=== PATIENT | female | born 1985 | race Caucasian/White ===

== ENCOUNTER 2020-03-21 00:23 | Inpatient (IN) | payer BC ==
[~2020-03-21] VITALS: Ht 165.1 cm; Wt 78.2 kg
[2020-03-21] MEDS ORDERED: UNABLE MC (00:52)
[2020-03-21 01:01] LABS: BASO % 0 % (0-3); EOS % 0 % (0-3); HEMATOCRIT 39.8 % (36.0-47.0); HEMOGLOBIN 12.9 g/dL (12.0-15.5); LYMPH # 1.3 x10^3/uL (1.0-4.8); LYMPH % 13 % (24-48); MEAN CORPUSCULAR HEMOGLOBIN 26 pg (25-35); MEAN CORPUSCULAR HGB CONC 32 g/dL (31-37); MEAN CORPUSCULAR VOLUME 79 fL (79-100); MONO # 0.6 x10^3/uL (0.0-1.1); MONO % 6 % (0-9); NEUT # 8.1 x10^3/uL (1.8-7.7); NEUT % 81 % (31-73); PLATELET COUNT 328 x10^3/uL (140-400); RED BLOOD COUNT 5.02 x10^6/uL (3.50-5.40); RED CELL DISTRIBUTION WIDTH 17.7 % (11.5-14.5)
[2020-03-21 01:15] LABS: GFR 63.5; POTASSIUM 3.9 mmol/L (3.5-5.1)
[2020-03-21 01:29] LABS: ALBUMIN 3.8 g/dL (3.4-5.0); ALBUMIN/GLOBULIN RATIO 0.9 (1.0-1.7); TOTAL BILIRUBIN 0.4 mg/dL (0.2-1.0); TOTAL PROTEIN 8.2 g/dL (6.4-8.2)
[2020-03-21] MEDS ORDERED: IV NORMAL SALINE 1000ML BAG 1,000 ML IV ONE (01:30)
[2020-03-21] MEDS ORDERED: ONDANSETRON PF 4 MG/2 ML VIAL. IVP ONE ×2 (01:30→02:30)
[2020-03-21 01:58] LABS: BILIRUBIN,URINE NEGATIVE (NEG); CLARITY,URINE CLEAR; COLOR,URINE YELLOW; NITRITE,URINE NEGATIVE (NEG); PH,URINE 6.5 (<5.0-8.0); PROTEIN,URINE NEGATIVE (NEG-TRACE)
[2020-03-21 02:01] LABS: BACTERIA,URINE MANY /HPF (0-FEW); RBC,URINE OCC /HPF (0-2); SQUAMOUS EPITHELIAL CELL,UR MOD /LPF
[2020-03-21] MEDS ORDERED: DICYCLOMINE 20 MG/2 ML VIAL. IM ONE (02:30)
[2020-03-21] MEDS ORDERED: MORPHINE SULFATE 4 MG/ML VIAL. IV ONE (02:30)
[2020-03-21] MEDS ORDERED: HYDROmorphone 2 MG/ML VIAL IM ONE (02:45)
[2020-03-21] MEDS ORDERED: HYDROmorphone 2 MG/ML VIAL IV ONE (03:00)
[2020-03-21] MEDS ORDERED: CONTRAST GIVEN. MC PRN (03:15)
--- NOTE | 2020-03-21 03:26 | PHYS DOC ---
Past Medical History Past Medical History: Hypothyroid, Other Additional Past Medical Histor: OCD,VIT B DEFFIC. Past Surgical History: Other Additional Past Surgical Histo: GASTRIC SLEEVE,TUBAL LIGATION,C SECT X 5 Smoking Status: Never Smoker Alcohol Use: None General Adult EDM: Chief Complaint: ABDOMINAL PAIN HPI: HPI: Patient is a 34 year old female who presents to the ED with a chief complaint of abdominal pain. Patient states that she has had the pain on and off all day today. Patient states that she had episodes of vomiting also today. Patient has been states that he has had diarrhea all day. Patient states that the barbiturate yesterday and thinks that she may have had something that caused this. Patient denies . Patient did say that she has a history of gastric bypass surgery and has a gastric pouch currently. Review of Systems: Review of Systems: Constitutional: Denies fever or chills. [] Eyes: Denies change in visual acuity. [] HENT: Denies nasal congestion or sore throat. [] Respiratory: Denies cough or shortness of breath. [] Cardiovascular: Denies chest pain or edema. [] GI: Patient complains of abdominal pain, nausea and vomiting [] : Denies dysuria. [] Neurologic: Denies headache, focal weakness or sensory changes. [] Heart Score: Risk Factors: Risk Factors: DM, Current or recent (<one month) smoker, HTN, HLP, family history of CAD, obesity. Risk Scores: Score 0 - 3: 2.5% MACE over next 6 weeks - Discharge Home Score 4 - 6: 20.3% MACE over next 6 weeks - Admit for Clinical Observation Score 7 - 10: 72.7% MACE over next 6 weeks - Early Invasive Strategies Current Medications: Current Medications Medications (Trade) Dose Ordered Sig/Kleber Start Time Stop Time Status Last Admin Dose Admin Dicyclomine HCl (Bentyl) 20 mg 1X ONCE 03/21/20 02:30 03/21/20 02:31 DC 03/21/20 02:21 20 MG Hydromorphone HCl (Dilaudid) 1 mg 1X ONCE 03/21/20 03:00 03/21/20 03:01 DC Info (CONTRAST GIVEN -- Rx MONITORING) 1 each PRN DAILY PRN 03/21/20 03:15 03/23/20 03:14 Iohexol (Omnipaque 300 Mg/ml) 75 ml 1X ONCE 03/21/20 03:30 03/21/20 03:31 03/21/20 03:11 75 ML Morphine Sulfate (Morphine Sulfate) 4 mg 1X ONCE 03/21/20 02:30 03/21/20 02:31 DC Ondansetron HCl (Zofran) 4 mg 1X ONCE 03/21/20 02:30 03/21/20 02:31 DC 03/21/20 02:37 4 MG Sodium Chloride 1,000 ml @ 1,000 mls/hr 1X ONCE 03/21/20 01:30 03/21/20 02:29 DC 03/21/20 01:10 1,000 MLS/HR Allergies: Allergies: Allergies Coded Allergies Type Severity Reaction Last Updated Verified Penicillins Allergy Intermediate HIVES 03/21/20 Yes morphine Allergy Intermediate hives 03/21/20 Yes Physical Exam: PE: Constitutional: Well developed, well nourished, no acute distress, non-toxic appearance. [] HENT: Normocephalic, atraumatic Eyes: EOMI Neck: Normal range of motion, Supple Cardiovascular:Heart rate regular rhythm Lungs & Thorax: Bilateral breath sounds clear to auscultation [] Abdomen: Diffuse abdominal tenderness. No focal abdominal tenderness Extremities: No tenderness, ROM intact Neurologic: Alert and oriented X 3 Current Patient Data: Labs: Laboratory Tests Test 03/21/20 00:48 03/21/20 01:30 03/21/20 01:54 White Blood Count 10.0 x10^3/uL (4.0-11.0) Red Blood Count 5.02 x10^6/uL (3.50-5.40) Hemoglobin 12.9 g/dL (12.0-15.5) Hematocrit 39.8 % (36.0-47.0) Mean Corpuscular Volume 79 fL (79-100) Mean Corpuscular Hemoglobin 26 pg (25-35) Mean Corpuscular Hemoglobin Concent 32 g/dL (31-37) Red Cell Distribution Width 17.7 % (11.5-14.5) H Platelet Count 328 x10^3/uL (140-400) Neutrophils (%) (Auto) 81 % (31-73) H Lymphocytes (%) (Auto) 13 % (24-48) L Monocytes (%) (Auto) 6 % (0-9) Eosinophils (%) (Auto) 0 % (0-3) Basophils (%) (Auto) 0 % (0-3) Neutrophils # (Auto) 8.1 x10^3/uL (1.8-7.7) H Lymphocytes # (Auto) 1.3 x10^3/uL (1.0-4.8) Monocytes # (Auto) 0.6 x10^3/uL (0.0-1.1) Eosinophils # (Auto) 0.0 x10^3/uL (0.0-0.7) Basophils # (Auto) 0.0 x10^3/uL (0.0-0.2) Sodium Level 140 mmol/L (136-145) Potassium Level 3.9 mmol/L (3.5-5.1) Chloride Level 103 mmol/L (98-107) Carbon Dioxide Level 26 mmol/L (21-32) Anion Gap 11 (6-14) Blood Urea Nitrogen 15 mg/dL (7-20) Creatinine 1.0 mg/dL (0.6-1.0) Estimated GFR (Cockcroft-Gault) 63.5 BUN/Creatinine Ratio 15 (6-20) Glucose Level 125 mg/dL (70-99) H Lactic Acid Level 1.7 mmol/L (0.4-2.0) Calcium Level 9.0 mg/dL (8.5-10.1) Total Bilirubin 0.4 mg/dL (0.2-1.0) Aspartate Amino Transferase (AST) 19 U/L (15-37) Alanine Aminotransferase (ALT) 21 U/L (14-59) Alkaline Phosphatase 37 U/L (46-116) L Total Protein 8.2 g/dL (6.4-8.2) Albumin 3.8 g/dL (3.4-5.0) Albumin/Globulin Ratio 0.9 (1.0-1.7) L Lipase 167 U/L (73-393) Urine Collection Type Unknown Urine Color Yellow Urine Clarity Clear Urine pH 6.5 (<5.0-8.0) Urine Specific [place] >=1.030 (1.000-1.030) Urine Protein Negative mg/dL (NEG-TRACE) Urine Glucose (UA) Negative mg/dL (NEG) Urine Ketones (Stick) 40 mg/dL (NEG) Urine Blood Moderate (NEG) Urine Nitrite Negative (NEG) Urine Bilirubin Negative (NEG) Urine Urobilinogen Dipstick 1.0 mg/dL (0.2 mg/dL) Urine Leukocyte Esterase Negative (NEG) Urine RBC Occ /HPF (0-2) Urine WBC 5-10 /HPF (0-4) Urine Squamous Epithelial Cells Mod /LPF Urine Bacteria Many /HPF (0-FEW) Urine Mucus Marked /LPF POC Urine HCG, Qualitative Hcg negative (Negative) Laboratory Tests 03/21/20 00:48 Laboratory Tests 03/21/20 00:48 Vital Signs: Vital Signs Date Time Temp Pulse Resp B/P (MAP) Pulse Ox O2 Delivery O2 Flow Rate FiO2 03/21/20 02:11 58 20 116/69 (85) 99 Room Air 03/21/20 00:38 98.3 98.3 EKG: EKG: [] Radiology/Procedures: Radiology/Procedures: [] Impression: CT ABD/PELVIS IMPRESSION: 1. Multiple fluid-filled mildly dilated loops of small bowel without a definite transition point to decompressed small bowel. Findings may represent enteritis or potentially early/partial small bowel obstruction. Fluid is noted in the cecum. 2. Poorly characterized area of masslike fullness in the left hemipelvis with adjacent pelvic lymphadenopathy. Imaging characteristics are nonspecific, but considerations would include conglomerate lymphadenopathy, rectosigmoid mass, or exophytic uterine/cervical mass. Contrast-enhanced pelvic MRI may provide additional information. Course & Med Decision Making: Course & Med Decision Making Pertinent Labs and Imaging studies reviewed. (See chart for details) Labs are within normal limits. Patient is given Dilaudid 1 mg IV and Zofran 4 mg IV. She is also given Bentyl [address] scan results. CT shows enteritis and partial small bowel obstruction. There is also a pelvic mass seen. Patient will be admitted for further evaluation and treatment. No NG tube placed as patient has a gastric pouch. Discussed results and plan of care with patient and family. Patient will be admitted to the hospitalist service. Bowen Disclaimer: Bowen Disclaimer: This electronic medical record was generated, in whole or in part, using a voice recognition dictation system. Departure Departure Impression: Primary Impression: Enteritis Additional Impressions: Small bowel obstruction, partial Pelvic mass in female Disposition: ADMITTED INPATIENT Admitting Physician: CECILE Condition: GOOD Referrals: UNKNOWN PCP NAME (PCP) Justicifation of Admission Dx: Justifications for Admission: Justification of Admission Dx: Yes Comments: ENTERITIS, PARTIAL SBO, PELVIC MASS HADLEY ZAVALA DO Mar 21, 2020 03:26
[2020-03-21] MEDS ORDERED: IOHEXOL 300 MG/ML 100ML VIAL. IV ONE (03:30)
--- NOTE | 2020-03-21 03:49 | RAD ---
CT ABD PELV W/ IV CONTRST ONLY History: pain Comparison: None. Technique: After administration of intravenous contrast, helical CT of the abdomen and pelvis was performed from the lung bases through the ischial tuberosities. Coronal and sagittal reconstructions were obtained. 75 mL of Omnipaque 300 were used. One or more of the following dose reduction techniques were utilized: Automated exposure control (AEC), Adjustment of mA and/or kV according to patient size, Use of iterative reconstruction technique such as ASiR, CT scan done according to ALARA and image gently/image wisely Abdomen Findings: The visualized lung bases are clear. Small hiatal hernia. The liver, gallbladder, pancreas, spleen, and bilateral adrenal glands are normal. Symmetric renal enhancement. There is no focal renal mass. There is no hydronephrosis. Gastric sleeve. Multiple fluid-filled mildly dilated loops of small bowel measuring up to 3.4 cm in diameter. No definite transition point to decompressed bowel. Fluid in the cecum. There is no free fluid. There is no mesenteric or retroperitoneal adenopathy. The abdominal aorta is normal in caliber. Pelvis Findings: Urinary bladder is partially distended. Uterus is present. Area of masslike fullness in the left hemipelvis involving or abutting the rectosigmoid region and the lower uterus measuring 5.0 x 4.0 x 4.4 cm. Multiple adjacent abnormally enlarged lymph nodes, for example enlarged pelvic lymph node measuring 1.7 x 1.6 cm (series 2 image 69). This structure is separate from the left ovary. There is no acute bony abnormality. IMPRESSION: 1. Multiple fluid-filled mildly dilated loops of small bowel without a definite transition point to decompressed small bowel. Findings may represent enteritis or potentially early/partial small bowel obstruction. Fluid is noted in the cecum. 2. Poorly characterized area of masslike fullness in the left hemipelvis with adjacent pelvic lymphadenopathy. Imaging characteristics are nonspecific, but considerations would include conglomerate lymphadenopathy, rectosigmoid mass, or exophytic uterine/cervical mass. Contrast-enhanced pelvic MRI may provide additional information. Electronically signed by: Howard Hdz MD (03/21/2020 3:47 AM) [facility]
[2020-03-21] MEDS ORDERED: ONDANSETRON PF 4 MG/2 ML VIAL. IV PRN (04:15)
[2020-03-21 05:17] VITALS: BP 118/74
[2020-03-21] MEDS ORDERED: FLUO10TA PO (05:27)
[2020-03-21] MEDS ORDERED: LEVO88TA4 PO (05:27)
[2020-03-21] MEDS ORDERED: LISD20CA4 PO (05:27)
[2020-03-21] MEDS ORDERED: CYAN10002 IM (05:27)
[2020-03-21] MEDS ORDERED: NALT1TAB PO (05:27)
[2020-03-21] MEDS: IV NORMAL SALINE 1000ML BAG 1,000 ML IV SCH ×2 (06:06→17:29)
[2020-03-21] MEDS: HYDROmorphone 2 MG/ML VIAL IV PRN ×3 (06:06→13:35)
[2020-03-21 07:00] VITALS: BP 118/72
[2020-03-21 11:00] VITALS: BP 120/67
--- NOTE | 2020-03-21 12:30 | HP ---
ADMIT DATE: 03/21/2020 CHIEF COMPLAINT: Abdominal pain, nausea, vomiting. HISTORY OF PRESENT ILLNESS: The patient is a pleasant 34-year-old female who had a gastric sleeve surgery at [facility] [address] Oneil[address] She thought Dr[address] Acharya also did participate in the surgery, but now she realizes that was just Dr. Oneil. Basically, she presents with abdominal pain and nausea, vomiting. I discussed the case with ER physician. We admitted overnight for observation. This morning, she is being examined. I have consulted GI. PAST MEDICAL HISTORY: The above-mentioned gastric sleeve, hyperthyroidism, OCD. ALLERGIES: PENICILLIN AND MORPHINE. FAMILY HISTORY: Diabetes. SOCIAL HISTORY: She does not drink, smoke or take drugs. 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 MEDICATIONS: Reviewed, please refer to the MRAD. REVIEW OF SYSTEMS: GENERAL: No history of weight change, weakness or fevers. SKIN: No bruising, hair changes or rashes. EYES: No blurred, double or loss of vision. NOSE AND THROAT: No history of nosebleeds, hoarseness or sore throat. HEART: No history of palpitations, chest pain or shortness of breath on exertion. LUNGS: Denies cough, hemoptysis, wheezing or shortness of breath. GASTROINTESTINAL: The patient complains of abdominal pain. GENITOURINARY: No history of frequency, urgency, hesitancy or nocturia. NEUROLOGIC: Denies history of numbness, tingling, tremor or weakness. PSYCHIATRIC: No history of panic, anxiety or depression. ENDOCRINE: No history of heat or cold intolerance, polyuria or polydipsia. EXTREMITIES: Denies muscle weakness, joint pain, pain on walking or stiffness. PHYSICAL EXAMINATION: VITALS: Within normal limits and are stable. GENERAL: No apparent distress. Alert and oriented. HEENT: Normal cephalic atraumatic, external auditory canals are patent EYES: Extraocular muscles are intact, pupils are equally round and reactive to light and accommodation MUSCULOSKELETAL: Well developed, well nourished, good range of motion ENDOCRINE: No thyromegaly was palpated LYMPHATICS: No cervical chain or axillary nodes were noted HEMATOPOIETIC: No bruising NECK: Supple, no JVD, no thyromegaly was noted. LUNGS: Clear to auscultation in all lung deal without rhonchi or wheezing. HEART: RRR, S1, S2 present. Peripheral pulses intact, no obvious murmurs were noted. ABDOMEN: Her abdomen is tender. Decreased bowel sounds. EXTREMITIES: Without any cyanosis, clubbing, or edema. Pedal pulses intact, Homans sign is negative. NEUROLOGIC: Normal speech, normal tone. A & O x3, moves all extremities, no obvious focal deficits. PSYCHIATRIC: Normal affect, normal mood. Stable. SKIN: No ulcerations or rashes, good skin turgor, no jaundice. VASCULAR: Good capillary refill, neurovascular bundle appears to be intact. IMAGING AND LABORATORY DATA: Not available because the computer is down. ASSESSMENT AND PLAN: Partial small-bowel obstruction and possible enteritis. The patient will be admitted. We will consult GI. IV fluids, home meds, DVT prophylaxis. Full code. Await further GI input. Hope to discharge soon if her symptoms resolve. FRANCOIS LOVE DO DR: MILAN/georges JOB#: [id number] / [id number]
--- NOTE | 2020-03-21 14:29 | NUR ---
Dr. Mello placed order for Morphine 2mg IVP Q2 and Benadryl 25mg IVP Q8. DR. Mello is aware of the allergy to Morphine. Patient requesting the Morphine for pain.
--- NOTE | 2020-03-21 14:33 | PDOC ---
A/P: Abd pain, n/v Abnormal CT w/ enteritis vs pSBO, masslike fullness in left hemipelvis w/ lymphadenopathy S/p gastric sleeve -- [employer] down - will enter full consult note when able. Reviewed w/ Dr. Clarke - will ask for surgery opinion and recheck KUB in a.m. No bariatric services available here. Continue NPO and IVF per Dr. Mello. Add IV acid-director supply chain. Justicifation of Admission Dx: Justifications for Admission: Justification of Admission Dx: Yes RHEA GAGNON Mar 21, 2020 14:33
--- NOTE | 2020-03-21 14:56 | PDOC2 ---
GI CONSULT Reason For Consult: enteritis and partial SBO HPI: HPI: 34 y/o female w/ acute onset of diffuse stabbing abdominal pain yesterday at 4:00 p.m. Associated w/ nausea and then "tons" of vomiting when arrived at ER. Ongoing intermittent pain since admission - mostly from belly button up. Nausea w/o recurrent vomiting. Last stooled on Saturday03/18/20. No flatus. No similar symptoms in the past. Denies precipitating events - chart mentions "ate bad food" and indicates diarrhea - she denies both. Says had hamburgers at home with family to celebrate 19 of March and no one else got sick. Typically no chronic GI issues except constipation controlled w/ laxatives QHS - with these, stools once daily. No reflux/heartburn, dysphagia, chronic n/v or abd pain, diarrhea, hematochezia, or melena. S/p gastric sleeve ~4 years ago w/ Dr. Oneil @ [facility]. Hasn't seen him since 3 months after surgery but sees a nurse practitioner (?in the same clinic) for general care. Lost >100 pounds, then gained some back, and now has lost more w/ help of Contrave (started 1 month ago). Thinks had EGD w/ bariatrician prior to gastric sleeve, recalled as normal. No previous colonoscopy. No GB, liver, pancreas, or PUD history. No NSAIDs. PMH: PMH: hypothyroidism, B12 deficiency, OCD tubal ligation, x 5, gastric sleeve FH: Family History: Other ("I don't know about my mom's side of the family") Social History: Smoke: No ALCOHOL: none Drugs: None ROS: GEN: +chills +sweats HEENT: Denies blurred vision, sore throat CV: Denies chest pain RESP: Denies shortness of air, cough GI: Per HPI : Denies hematuria, dysuria ENDO: +intentional weight loss NEURO: Denies confusion, dizziness MSK: Denies weakness, joint pain/swelling SKIN: Denies jaundice, pruritus Vitals: Vitals: Vital Signs Date Time Temp Pulse Resp B/P (MAP) Pulse Ox O2 Delivery O2 Flow Rate FiO2 03/21/20 14:26 12 Room Air 03/21/20 11:00 98.5 69 120/67 (84) 98 98.5 Labs: Labs: Laboratory Tests Test 03/21/20 00:48 03/21/20 01:30 03/21/20 01:54 White Blood Count 10.0 x10^3/uL (4.0-11.0) Red Blood Count 5.02 x10^6/uL (3.50-5.40) Hemoglobin 12.9 g/dL (12.0-15.5) Hematocrit 39.8 % (36.0-47.0) Mean Corpuscular Volume 79 fL (79-100) Mean Corpuscular Hemoglobin 26 pg (25-35) Mean Corpuscular Hemoglobin Concent 32 g/dL (31-37) Red Cell Distribution Width 17.7 % (11.5-14.5) Platelet Count 328 x10^3/uL (140-400) Neutrophils (%) (Auto) 81 % (31-73) Lymphocytes (%) (Auto) 13 % (24-48) Monocytes (%) (Auto) 6 % (0-9) Eosinophils (%) (Auto) 0 % (0-3) Basophils (%) (Auto) 0 % (0-3) Neutrophils # (Auto) 8.1 x10^3/uL (1.8-7.7) Lymphocytes # (Auto) 1.3 x10^3/uL (1.0-4.8) Monocytes # (Auto) 0.6 x10^3/uL (0.0-1.1) Eosinophils # (Auto) 0.0 x10^3/uL (0.0-0.7) Basophils # (Auto) 0.0 x10^3/uL (0.0-0.2) Sodium Level 140 mmol/L (136-145) Potassium Level 3.9 mmol/L (3.5-5.1) Chloride Level 103 mmol/L (98-107) Carbon Dioxide Level 26 mmol/L (21-32) Anion Gap 11 (6-14) Blood Urea Nitrogen 15 mg/dL (7-20) Creatinine 1.0 mg/dL (0.6-1.0) Estimated GFR (Cockcroft-Gault) 63.5 BUN/Creatinine Ratio 15 (6-20) Glucose Level 125 mg/dL (70-99) Lactic Acid Level 1.7 mmol/L (0.4-2.0) Calcium Level 9.0 mg/dL (8.5-10.1) Total Bilirubin 0.4 mg/dL (0.2-1.0) Aspartate Amino Transf (AST/SGOT) 19 U/L (15-37) Alanine Aminotransferase (ALT/SGPT) 21 U/L (14-59) Alkaline Phosphatase 37 U/L (46-116) Total Protein 8.2 g/dL (6.4-8.2) Albumin 3.8 g/dL (3.4-5.0) Albumin/Globulin Ratio 0.9 (1.0-1.7) Lipase 167 U/L (73-393) Urine Collection Type Unknown Urine Color Yellow Urine Clarity Clear Urine pH 6.5 (<5.0-8.0) Urine Specific [place] >=1.030 (1.000-1.030) Urine Protein Negative mg/dL (NEG-TRACE) Urine Glucose (UA) Negative mg/dL (NEG) Urine Ketones (Stick) 40 mg/dL (NEG) Urine Blood Moderate (NEG) Urine Nitrite Negative (NEG) Urine Bilirubin Negative (NEG) Urine Urobilinogen Dipstick 1.0 mg/dL (0.2 mg/dL) Urine Leukocyte Esterase Negative (NEG) Urine RBC Occ /HPF (0-2) Urine WBC 5-10 /HPF (0-4) Urine Squamous Epithelial Cells Mod /LPF Urine Bacteria Many /HPF (0-FEW) Urine Mucus Marked /LPF Bedside Urine HCG, Qualitative Hcg negative (Negative) Allergies: Coded Allergies: Penicillins (Verified Allergy, Intermediate, HIVES, 03/21/20) morphine (Verified Allergy, Intermediate, hives, 03/21/20) Medications: Current Medications Medications (Trade) Dose Ordered Sig/Kleber Route PRN Reason Start Time Stop Time Status Last Admin Dose Admin Sodium Chloride 1,000 ml @ 1,000 mls/hr 1X ONCE IV 03/21/20 01:30 03/21/20 02:29 DC 03/21/20 01:10 Ondansetron HCl (Zofran) 4 mg 1X ONCE IVP 03/21/20 01:30 03/21/20 01:31 DC 03/21/20 01:10 Ondansetron HCl (Zofran) 4 mg 1X ONCE IVP 03/21/20 02:30 03/21/20 02:31 DC 03/21/20 02:37 Dicyclomine HCl (Bentyl) 20 mg 1X ONCE IM 03/21/20 02:30 03/21/20 02:31 DC 03/21/20 02:21 Iohexol (Omnipaque 300 Mg/ml) 75 ml 1X ONCE IV 03/21/20 03:30 03/21/20 03:31 DC 03/21/20 03:11 Sodium Chloride 1,000 ml @ 125 mls/hr Q8H IV 03/21/20 06:00 03/21/20 06:06 Hydromorphone HCl (Dilaudid) 1 mg PRN Q4HRS PRN IV SEVERE PAIN 7-10 03/21/20 06:00 03/21/20 13:35 Imaging: Imaging: CT A/P IMPRESSION: 1. Multiple fluid-filled mildly dilated loops of small bowel without a definite transition point to decompressed small bowel. Findings may represent enteritis or potentially early/partial small bowel obstruction. Fluid is noted in the cecum. 2. Poorly characterized area of masslike fullness in the left hemipelvis with adjacent pelvic lymphadenopathy. Imaging characteristics are nonspecific, but considerations would include conglomerate lymphadenopathy, rectosigmoid mass, or exophytic uterine/cervical mass. Contrast-enhanced pelvic MRI may provide additional information. PE: GEN: uncomfortable HEENT: Atraumatic, PERRL LUNGS: CTAB HEART: RRR ABD: NABS, soft, periumbilical tenderness and above EXTREMITY: No edema SKIN: No rashes, no jaundice NEURO/PSYCH: A & O 3 A/P: A/P: Cramping upper abdominal pain, n/v ?UTI Abnormal CT w/ enteritis vs pSBO and masslike fullness in left hemipelvis w/ lymphadenopathy S/p gastric sleeve CRC screen - average risk H/o constipation - controlled w/ laxatives QHS S/p x 5 and tubal ligation -- Seen earlier this afternoon when [employer] unavailable. No bariatric services available here - says normally goes to [facility] ER - should follow-up w/ Dr. Oneil. Reviewed w/ Dr. Clarke - will ask for surgery opinion and check KUB in a.m. Continue NPO. Add IV acid-newswriter. Monitor labs in a.m. IVF and home meds per Dr. Mello. RHEA GAGNON Mar 21, 2020 14:55
[2020-03-21 15:00] VITALS: BP 136/49
--- NOTE | 2020-03-21 16:53 | NUR ---
SW following. Reviewed chart and spoke with RN. Pt recently had gastric sleeve surgery a few days ago. Pt plans to return home at discharge. Pt on room air. Pt on IV pain medications. No further SW needs at this time per RN.
[2020-03-21] MEDS: PANTOPRAZOLE IV PUSH 40 MG VIAL. IVP SCH (17:27)
[2020-03-21] MEDS: diphenhydrAMINE 50 MG/ML VIAL IVP PRN (17:28)
[2020-03-21] MEDS: MORPHINE SULFATE 2 MG/ML VIAL. IV PRN (17:28)
[2020-03-21 19:00] VITALS: BP 102/62
--- NOTE | 2020-03-21 19:31 | NUR ---
Patient wants home meds restarted. Patient is NPO. Consults orders received. Consults have been notified. KUB order received. Patient's pain has been managed with Morphine. Patient tolerated well.
[2020-03-21 23:00] VITALS: BP 93/62
[2020-03-22] MEDS: IV NORMAL SALINE 1000ML BAG 1,000 ML IV SCH ×3 (00:42→17:56)
[2020-03-22 03:00] VITALS: BP 108/62
[2020-03-22] MEDS: diphenhydrAMINE 50 MG/ML VIAL IVP PRN ×2 (06:35→21:06)
[2020-03-22] MEDS: MORPHINE SULFATE 2 MG/ML VIAL. IV PRN ×2 (06:35→21:07)
[2020-03-22 06:46] LABS: HEMATOCRIT 31.9 % (36.0-47.0); HEMOGLOBIN 10.2 g/dL (12.0-15.5); RED BLOOD COUNT 3.98 x10^6/uL (3.50-5.40); RED CELL DISTRIBUTION WIDTH 17.4 % (11.5-14.5); WHITE BLOOD COUNT 3.8 x10^3/uL (4.0-11.0)
[2020-03-22 07:10] LABS: CALCIUM 7.6 mg/dL (8.5-10.1); CREATININE 1.1 mg/dL (0.6-1.0); GFR 56.9; POTASSIUM 4.3 mmol/L (3.5-5.1)
[2020-03-22] MEDS: PANTOPRAZOLE IV PUSH 40 MG VIAL. IVP SCH (07:17)
[2020-03-22 07:51] VITALS: BP 130/46
--- NOTE | 2020-03-22 08:35 | RAD ---
KUB History: Reason: abd pain, partial SBO on CT / Spl. Instructions: / History: Technique: Supine view the abdomen. Comparison: CT March 21, 2020 Findings: Moderate prominent small bowel gas within the left mid abdomen. Fluid-filled bowel is better characterize and previously seen CT. Air stool scattered throughout the imaged colon. Postoperative changes left upper abdomen. Impression: 1. Mildly prominent air-filled loops of small bowel within the left mid abdomen. Previously seen fluid-filled small bowel is better characterized on prior CT. Electronically signed by: Mati Gardner DO (03/22/2020 8:32 AM) [id number]
--- NOTE | 2020-03-22 09:50 | PDOC ---
Subjective: Subjective: "They're making sure I have no pain." No n/v, no flatus or stool. Objective: Vital Signs: Vital Signs Date Time Temp Pulse Resp B/P (MAP) Pulse Ox O2 Delivery O2 Flow Rate FiO2 03/22/20 07:51 97.4 73 16 130/46 (74) 97 Room Air 97.4 Labs: Laboratory Tests Test 03/22/20 05:30 03/22/20 06:30 White Blood Count 3.8 x10^3/uL Red Blood Count 3.98 x10^6/uL Hemoglobin 10.2 g/dL Hematocrit 31.9 % Mean Corpuscular Volume 80 fL Mean Corpuscular Hemoglobin 26 pg Mean Corpuscular Hemoglobin Concent 32 g/dL Red Cell Distribution Width 17.4 % Platelet Count 199 x10^3/uL Sodium Level 142 mmol/L Potassium Level 4.3 mmol/L Chloride Level 108 mmol/L Carbon Dioxide Level 28 mmol/L Anion Gap 6 Blood Urea Nitrogen 10 mg/dL Creatinine 1.1 mg/dL Estimated GFR (Cockcroft-Gault) 56.9 Glucose Level 82 mg/dL Calcium Level 7.6 mg/dL Iron Level 131 ug/dL Total Iron Binding Capacity 274 ug/dL Iron Saturation 48 % Vitamin B12 Level 1805 pg/mL Imaging: KUB 03/22 Impression: 1. Mildly prominent air-filled loops of small bowel within the left mid abdomen. Previously seen fluid-filled small bowel is better characterized on prior CT. PE: GEN: NAD - was asleep LUNGS: CTAB HEART: RRR ABD: NABS, S/ND, epigastric tenderness - less to BUQ, no tenderness in lower abd NEURO/PSYCH: A & O 3 A/P: Upper abdominal pain, n/v ?UTI - cx pending Abnormal CT w/ enteritis vs pSBO, fullness in left hemipelvis, lymphadenopathy S/p gastric sleeve -- Interval imaging as above... has bowel sounds - ?try clears - await surgery recs. Continue PPI - change to PO as able. Needs bariatric surgeon follow-up - not available here. Encouraged her to use pain medication PRN... getting morphine, Dilaudid, Benadryl. Justicifation of Admission Dx: Justifications for Admission: Justification of Admission Dx: Yes RHEA GAGNON Mar 22, 2020 09:50
--- NOTE | 2020-03-22 10:08 | PDOC2 ---
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 Associated nausea, had significant emesis in ER. None now. Pain is improved, intermittent now. Denies any diarrhea. Reports last stool Saturday, no flatus since. Feels mildly bloated. Gastric sleeve 4 years ago, [facility]. No hx SBO. Past Medical History Endocrine: Hypothyroidism Past Surgical History Past Surgical History: (x5), Other (gastric sleeve) Family History Family History: Family History Unknown Social History Quit ALCOHOL: none Drugs: None Lives: with Family Current Problem List Problem List Problems Medical Problems: (1) Enteritis Status: Acute (2) Pelvic mass in female Status: Acute (3) Small bowel obstruction, partial Status: Acute Current Medications Current Medications Current Medications Sodium Chloride 1,000 ml @ 1,000 mls/hr 1X ONCE IV Last administered on 03/21/20at 01:10; Start 03/21/20 at 01:30; Stop 03/21/20 at 02:29; Status DC Ondansetron HCl (Zofran) 4 mg 1X ONCE IVP Last administered on 03/21/20at 01:10; Start 03/21/20 at 01:30; Stop 03/21/20 at 01:31; Status DC Morphine Sulfate (Morphine Sulfate) 4 mg 1X ONCE IV ; Start 03/21/20 at 02:30; Stop 03/21/20 at 02:31; Status DC Ondansetron HCl (Zofran) 4 mg 1X ONCE IVP Last administered on 03/21/20at 02:37; Start 03/21/20 at 02:30; Stop 03/21/20 at 02:31; Status DC Dicyclomine HCl (Bentyl) 20 mg 1X ONCE IM Last administered on 03/21/20at 02:21; Start 03/21/20 at 02:30; Stop 03/21/20 at 02:31; Status DC Hydromorphone HCl (Dilaudid) 1 mg 1X ONCE IM ; Start 03/21/20 at 02:45; Stop 03/21/20 at 02:46; Status DC Hydromorphone HCl (Dilaudid) 1 mg 1X ONCE IV ; Start 03/21/20 at 03:00; Stop 03/21/20 at 03:01; Status DC Iohexol (Omnipaque 300 Mg/ml) 75 ml 1X ONCE IV Last administered on 03/21/20at 03:11; Start 03/21/20 at 03:30; Stop 03/21/20 at 03:31; Status DC Info (CONTRAST GIVEN -- Rx MONITORING) 1 each PRN DAILY PRN MC SEE COMMENTS; Start 03/21/20 at 03:15; Stop 03/23/20 at 03:14 Ondansetron HCl (Zofran) 4 mg PRN Q8HRS PRN IV NAUSEA/VOMITING 1ST CHOICE; Start 03/21/20 at 04:15; Stop 03/22/20 at 04:14; Status DC Sodium Chloride 1,000 ml @ 125 mls/hr Q8H IV Last administered on 03/22/20at 08:50; Start 03/21/20 at 06:00 Hydromorphone HCl (Dilaudid) 1 mg PRN Q4HRS PRN IV SEVERE PAIN 7-10 Last administered on 03/21/20at 13:35; Start 03/21/20 at 06:00 Morphine Sulfate (Morphine Sulfate) 2 mg PRN Q2HR PRN IV MODERATE TO SEVERE PAIN Last administered on 03/22/20at 06:35; Start 03/21/20 at 14:00 Diphenhydramine HCl (Benadryl) 25 mg PRN Q8HRS PRN IVP ITCHING Last administered on 03/22/20at 06:35; Start 03/21/20 at 14:00 Pantoprazole Sodium (PROTONIX VIAL for IV PUSH) 40 mg DAILYAC IVP Last administered on 03/22/20at 07:17; Start 03/21/20 at 15:00 Active Scripts Active Reported Vyvanse (Lisdexamfetamine Dimesylate) 20 Mg Capsule 1 Cap PO DAILYWBKFT MDD 1 Capsule(s) 30 Days Fluoxetine Hcl 10 Mg Tablet 10 Mg PO DAILY Levothyroxine Sodium 88 Mcg Tablet 1 Tab PO DAILY Contrave ER 8-90 mg Tablet (Naltrexone HCl/Bupropion HCl) 1 Each Tablet.er 2 Tab PO BID 30 Days Cyanocobalamin Injection (Cyanocobalamin (Vitamin B-12)) 1,000 Mcg/1 Ml Vial 1 Ml IM QMONTH Unable To Obtain Meds From Prior To Admit (Info) Each 1 Each Allergies Allergies: Coded Allergies: Penicillins (Verified Allergy, Intermediate, HIVES, 03/21/20) morphine (Verified Allergy, Intermediate, hives, 03/21/20) ROS General: No: Chills, Other (fevers ) PSYCHOLOGICAL ROS: No: Anxiety, Depression Eyes: No Blurry vision, No Double vision HEENT: No: Heacaches, Sore Throat Hematological and Lymphatic: No: Bleeding Problems, Blood Clots Respiratory: No: Cough, Shortness of breath Cardiovascular: No Chest Pain, No Palpitations Gastrointestinal: Yes Other (see hpi) Genitourinary: No Dysuria, No Hematuria Musculoskeletal: No Joint Pain, No Muscle Pain Neurological: No Impaired Coord/balance, No Numbness/Tingling Skin: No Pruritus, No Rash Physical Exam General: Alert, Oriented X3, Cooperative, No acute distress HEENT: Atraumatic, PERRLA Lungs: Clear to auscultation, Normal air movement Heart: Regular rate, Normal S1, Normal S2 Abdomen: Soft, No tenderness, Other (ND) Extremities: No clubbing, No cyanosis Skin: No rashes, No breakdown Neuro: Normal gait, Normal speech Psych/Mental Status: Mental status NL, Mood NL MUSCULOSKELETAL: No deformity, No swelling Vitals VITALS Vital Signs Date Time Temp Pulse Resp B/P (MAP) Pulse Ox O2 Delivery O2 Flow Rate FiO2 03/22/20 07:51 97.4 73 16 130/46 (74) 97 Room Air 97.4 Labs Labs Laboratory Tests Test 03/21/20 00:48 03/21/20 01:30 03/21/20 01:54 03/22/20 05:30 White Blood Count 10.0 x10^3/uL (4.0-11.0) 3.8 x10^3/uL (4.0-11.0) Red Blood Count 5.02 x10^6/uL (3.50-5.40) 3.98 x10^6/uL (3.50-5.40) Hemoglobin 12.9 g/dL (12.0-15.5) 10.2 g/dL (12.0-15.5) Hematocrit 39.8 % (36.0-47.0) 31.9 % (36.0-47.0) Mean Corpuscular Volume 79 fL (79-100) 80 fL (79-100) Mean Corpuscular Hemoglobin 26 pg (25-35) 26 pg (25-35) Mean Corpuscular Hemoglobin Concent 32 g/dL (31-37) 32 g/dL (31-37) Red Cell Distribution Width 17.7 % (11.5-14.5) 17.4 % (11.5-14.5) Platelet Count 328 x10^3/uL (140-400) 199 x10^3/uL (140-400) Neutrophils (%) (Auto) 81 % (31-73) Lymphocytes (%) (Auto) 13 % (24-48) Monocytes (%) (Auto) 6 % (0-9) Eosinophils (%) (Auto) 0 % (0-3) Basophils (%) (Auto) 0 % (0-3) Neutrophils # (Auto) 8.1 x10^3/uL (1.8-7.7) Lymphocytes # (Auto) 1.3 x10^3/uL (1.0-4.8) Monocytes # (Auto) 0.6 x10^3/uL (0.0-1.1) Eosinophils # (Auto) 0.0 x10^3/uL (0.0-0.7) Basophils # (Auto) 0.0 x10^3/uL (0.0-0.2) Sodium Level 140 mmol/L (136-145) Potassium Level 3.9 mmol/L (3.5-5.1) Chloride Level 103 mmol/L (98-107) Carbon Dioxide Level 26 mmol/L (21-32) Anion Gap 11 (6-14) Blood Urea Nitrogen 15 mg/dL (7-20) Creatinine 1.0 mg/dL (0.6-1.0) Estimated GFR (Cockcroft-Gault) 63.5 BUN/Creatinine Ratio 15 (6-20) Glucose Level 125 mg/dL (70-99) Lactic Acid Level 1.7 mmol/L (0.4-2.0) Calcium Level 9.0 mg/dL (8.5-10.1) Total Bilirubin 0.4 mg/dL (0.2-1.0) Aspartate Amino Transf (AST/SGOT) 19 U/L (15-37) Alanine Aminotransferase (ALT/SGPT) 21 U/L (14-59) Alkaline Phosphatase 37 U/L (46-116) Total Protein 8.2 g/dL (6.4-8.2) Albumin 3.8 g/dL (3.4-5.0) Albumin/Globulin Ratio 0.9 (1.0-1.7) Lipase 167 U/L (73-393) Urine Collection Type Unknown Urine Color Yellow Urine Clarity Clear Urine pH 6.5 (<5.0-8.0) Urine Specific [place] >=1.030 (1.000-1.030) Urine Protein Negative mg/dL (NEG-TRACE) Urine Glucose (UA) Negative mg/dL (NEG) Urine Ketones (Stick) 40 mg/dL (NEG) Urine Blood Moderate (NEG) Urine Nitrite Negative (NEG) Urine Bilirubin Negative (NEG) Urine Urobilinogen Dipstick 1.0 mg/dL (0.2 mg/dL) Urine Leukocyte Esterase Negative (NEG) Urine RBC Occ /HPF (0-2) Urine WBC 5-10 /HPF (0-4) Urine Squamous Epithelial Cells Mod /LPF Urine Bacteria Many /HPF (0-FEW) Urine Mucus Marked /LPF Bedside Urine HCG, Qualitative Hcg negative (Negative) Test 03/22/20 06:30 Sodium Level 142 mmol/L (136-145) Potassium Level 4.3 mmol/L (3.5-5.1) Chloride Level 108 mmol/L (98-107) Carbon Dioxide Level 28 mmol/L (21-32) Anion Gap 6 (6-14) Blood Urea Nitrogen 10 mg/dL (7-20) Creatinine 1.1 mg/dL (0.6-1.0) Estimated GFR (Cockcroft-Gault) 56.9 Glucose Level 82 mg/dL (70-99) Calcium Level 7.6 mg/dL (8.5-10.1) Iron Level 131 ug/dL (50-170) Total Iron Binding Capacity 274 ug/dL (250-450) Iron Saturation 48 % (15-34) Vitamin B12 Level 1805 pg/mL (247-911) Laboratory Tests Test 03/22/20 05:30 03/22/20 06:30 White Blood Count 3.8 x10^3/uL (4.0-11.0) Red Blood Count 3.98 x10^6/uL (3.50-5.40) Hemoglobin 10.2 g/dL (12.0-15.5) Hematocrit 31.9 % (36.0-47.0) Mean Corpuscular Volume 80 fL (79-100) Mean Corpuscular Hemoglobin 26 pg (25-35) Mean Corpuscular Hemoglobin Concent 32 g/dL (31-37) Red Cell Distribution Width 17.4 % (11.5-14.5) Platelet Count 199 x10^3/uL (140-400) Sodium Level 142 mmol/L (136-145) Potassium Level 4.3 mmol/L (3.5-5.1) Chloride Level 108 mmol/L (98-107) Carbon Dioxide Level 28 mmol/L (21-32) Anion Gap 6 (6-14) Blood Urea Nitrogen 10 mg/dL (7-20) Creatinine 1.1 mg/dL (0.6-1.0) Estimated GFR (Cockcroft-Gault) 56.9 Glucose Level 82 mg/dL (70-99) Calcium Level 7.6 mg/dL (8.5-10.1) Iron Level 131 ug/dL (50-170) Total Iron Binding Capacity 274 ug/dL (250-450) Iron Saturation 48 % (15-34) Vitamin B12 Level 1805 pg/mL (247-911) Assessment/Plan Assessment/Plan SBO/enteritis will check films in AM if not improving consider SBFT CT mentions pelvic lymphadenopathy--MRI at some point to further eval CHRISTINA FRANCISCO MD 03/22/20 1432: CONSULT Assessment/Plan Assessment/Plan Patient seen and examined by me she is currently resting comfortably in bed denies any nausea vomiting minimal abdominal pain. Abdomen is soft nondistended normal active bowel sounds mildly tender in the epigastrium. Agree with Riley assessment plan for bowel rest repeat abdominal films in a.m. hopefully ileus that will resolve THALIA DOWELL APRN Mar 22, 2020 10:08 CHRISTINA FRANCISCO MD Mar 22, 2020 14:32
[2020-03-22 11:00] VITALS: BP 119/72
--- NOTE | 2020-03-22 11:37 | PDOC ---
[employer] PROGRESS NOTE Chief Complaint Chief Complaint Abdominal pain gastric sleeve, hyperthyroidism, OCD. History of Present Illness History of Present Illness 03/22/2020 Patient seen and examined She feels little better today Chart reviewed Discussed with RN Working to try clear liquids Vitals/I&O Vitals/I&O: Vital Signs Date Time Temp Pulse Resp B/P (MAP) Pulse Ox O2 Delivery O2 Flow Rate FiO2 03/22/20 07:51 97.4 73 16 130/46 (74) 97 Room Air 97.4 I & O 03/21/20 03/21/20 03/22/20 15:00 23:00 07:00 Intake Total 0 ml 0 ml Output Total 1 ml Balance -1 ml 0 ml Physical Exam General: Alert, Oriented X3, Cooperative, No acute distress Heart: Regular rate, Normal S1, Normal S2 Abdomen: Soft, No tenderness, Other (ND) Extremities: No clubbing, No cyanosis Skin: No rashes, No breakdown Labs Labs: Laboratory Tests Test 03/22/20 05:30 03/22/20 06:30 White Blood Count 3.8 x10^3/uL (4.0-11.0) Red Blood Count 3.98 x10^6/uL (3.50-5.40) Hemoglobin 10.2 g/dL (12.0-15.5) Hematocrit 31.9 % (36.0-47.0) Mean Corpuscular Volume 80 fL (79-100) Mean Corpuscular Hemoglobin 26 pg (25-35) Mean Corpuscular Hemoglobin Concent 32 g/dL (31-37) Red Cell Distribution Width 17.4 % (11.5-14.5) Platelet Count 199 x10^3/uL (140-400) Sodium Level 142 mmol/L (136-145) Potassium Level 4.3 mmol/L (3.5-5.1) Chloride Level 108 mmol/L (98-107) Carbon Dioxide Level 28 mmol/L (21-32) Anion Gap 6 (6-14) Blood Urea Nitrogen 10 mg/dL (7-20) Creatinine 1.1 mg/dL (0.6-1.0) Estimated GFR (Cockcroft-Gault) 56.9 Glucose Level 82 mg/dL (70-99) Calcium Level 7.6 mg/dL (8.5-10.1) Iron Level 131 ug/dL (50-170) Total Iron Binding Capacity 274 ug/dL (250-450) Iron Saturation 48 % (15-34) Vitamin B12 Level 1805 pg/mL (247-911) Assessment and Plan Assessmemt and Plan Problems Medical Problems: (1) Enteritis Status: Acute (2) Pelvic mass in female Status: Acute (3) Small bowel obstruction, partial Status: Acute Abdominal pain gastric sleeve, hyperthyroidism, OCD. Plan Try clear liquid diet Appreciate subspecialist input Home meds DVT prophylaxis Full code Discharge when okay with subspecialist and she will need to see her bariatric surgeon at [facility] (Dr. Oneil) Comment Review of Relevant I have reviewed the following items aundrea (where applicable) has been applied. Medications: Current Medications Medications (Trade) Dose Ordered Sig/Kleber Route PRN Reason Start Time Stop Time Status Last Admin Dose Admin Morphine Sulfate (Morphine Sulfate) 2 mg PRN Q2HR PRN IV MODERATE TO SEVERE PAIN 03/21/20 14:00 03/22/20 06:35 Diphenhydramine HCl (Benadryl) 25 mg PRN Q8HRS PRN IVP ITCHING 03/21/20 14:00 03/22/20 06:35 Pantoprazole Sodium (PROTONIX VIAL for IV PUSH) 40 mg DAILYAC IVP 03/21/20 15:00 03/22/20 07:17 Justicifation of Admission Dx: Justifications for Admission: Justification of Admission Dx: Yes FRANCOIS LOVE III DO Mar 22, 2020 11:37
--- NOTE | 2020-03-22 14:10 | NUR ---
SW consulted per high risk discharge. Reviewed chart and spoke with RN. Spoke with pt and family. Pt lives at home with significant other. Pt on room air. Pt on IV pain medication. Pt stated she can afford her medications. SW will continue following.
[2020-03-22 15:00] VITALS: BP 115/67
[2020-03-22 19:12] VITALS: BP 116/73
[2020-03-22 22:45] VITALS: BP 119/71
[2020-03-23] VITALS (7 sets, daily range): BP systolic 95–131; BP diastolic 52–72
[2020-03-23] MEDS: IV NORMAL SALINE 1000ML BAG 1,000 ML IV SCH ×3 (02:48→14:00)
[2020-03-23] MEDS: PANTOPRAZOLE IV PUSH 40 MG VIAL. IVP SCH (07:20)
--- NOTE | 2020-03-23 09:51 | PDOC ---
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 0951: SURGICAL PROGRESS NOTE Subjective no flatus, had clears-seemed to bloat her some pain off and on Vital Signs Vital Signs Date Time Temp Pulse Resp B/P (MAP) Pulse Ox O2 Delivery O2 Flow Rate FiO2 03/23/20 07:31 Room Air 03/23/20 07:00 98.2 72 17 111/67 (82) 99 98.2 I&O Intake and Output 03/23/20 07:00 Intake Total 2550 ml Balance 2550 ml Intake Oral 550 ml IV Total 2000 ml # Voids 5 General: Alert, Oriented X3, Cooperative Abdomen: Soft, Other (mildly distended ) Labs Laboratory Tests Test 03/22/20 05:30 03/22/20 06:30 White Blood Count 3.8 x10^3/uL (4.0-11.0) Red Blood Count 3.98 x10^6/uL (3.50-5.40) Hemoglobin 10.2 g/dL (12.0-15.5) Hematocrit 31.9 % (36.0-47.0) Mean Corpuscular Volume 80 fL (79-100) Mean Corpuscular Hemoglobin 26 pg (25-35) Mean Corpuscular Hemoglobin Concent 32 g/dL (31-37) Red Cell Distribution Width 17.4 % (11.5-14.5) Platelet Count 199 x10^3/uL (140-400) Sodium Level 142 mmol/L (136-145) Potassium Level 4.3 mmol/L (3.5-5.1) Chloride Level 108 mmol/L (98-107) Carbon Dioxide Level 28 mmol/L (21-32) Anion Gap 6 (6-14) Blood Urea Nitrogen 10 mg/dL (7-20) Creatinine 1.1 mg/dL (0.6-1.0) Estimated GFR (Cockcroft-Gault) 56.9 Glucose Level 82 mg/dL (70-99) Calcium Level 7.6 mg/dL (8.5-10.1) Iron Level 131 ug/dL (50-170) Total Iron Binding Capacity 274 ug/dL (250-450) Iron Saturation 48 % (15-34) Vitamin B12 Level 1805 pg/mL (247-911) Problem List Problems Medical Problems: (1) Enteritis Status: Acute (2) Pelvic mass in female Status: Acute (3) Small bowel obstruction, partial Status: Acute Assessment/Plan xray pending noted uti on cultures--defer to [facility]PC Justicifation of Admission Dx: Justifications for Admission: Justification of Admission Dx: Yes CHRISTINA FRANCISCO MD 03/23/20 1245: SURGICAL PROGRESS NOTE Assessment/Plan Patient seen and examined by me currently resting comfortably in bed denies any nausea or vomiting does feel little bloated after having clear liquid diet. She denies flatus or bowel movement. Awaiting final report on abdominal films if improved would recommend to Glock suppository. Agree with Rosemary assessment and plan THALIA DOWELL APRN Mar 23, 2020 09:51 CHRISTINA FRANCISCO MD Mar 23, 2020 12:45
--- NOTE | 2020-03-23 11:45 | PDOC ---
[employer] PROGRESS NOTE Chief Complaint Chief Complaint Abdominal pain Enteritis Possible SBO gastric sleeve, hyperthyroidism, OCD. History of Present Illness History of Present Illness 03/23/2020 Patient seen and examined She seems to be feeling better She tolerated clear liquid diet yesterday but that is on hold for more imaging 03/22/2020 Patient seen and examined She feels little better today Chart reviewed Discussed with RN Working to try clear liquids Vitals/I&O Vitals/I&O: Vital Signs Date Time Temp Pulse Resp B/P (MAP) Pulse Ox O2 Delivery O2 Flow Rate FiO2 03/23/20 10:52 98.0 55 17 117/69 (85) 100 Room Air 98.0 I & O 03/22/20 03/22/20 03/23/20 15:00 23:00 07:00 Intake Total 1000 ml 1250 ml 300 ml Balance 1000 ml 1250 ml 300 ml Physical Exam General: Alert, Oriented X3, Cooperative Heart: Regular rate, Normal S1, Normal S2 Abdomen: Soft, Other (mildly distended ) Extremities: No clubbing, No cyanosis Skin: No rashes, No breakdown Assessment and Plan Assessmemt and Plan Problems Medical Problems: (1) Enteritis Status: Acute (2) Pelvic mass in female Status: Acute (3) Small bowel obstruction, partial Status: Acut Resolving enteritis and small bowel obstruction and [place] female who had a gastric sleeve 4 years ago at [facility] Plan Clinically she seems cleared to try a clear liquid diet and advance her diet if tolerates Appreciate general surgery input hopefully the imaging looks good (results are pending) If we are able to advance her diet would like to discharge this evening if possible For now continue current care Comment Review of Relevant I have reviewed the following items aundrea (where applicable) has been applied. Justicifation of Admission Dx: Justifications for Admission: Justification of Admission Dx: Yes FRANCOIS LOVE III DO Mar 23, 2020 11:45
[2020-03-23] MEDS: CIPROFLOXACIN HCL 250 MG TABLET. PO SCH ×2 (12:00→20:14)
--- NOTE | 2020-03-23 13:19 | PDOC ---
Subjective: Subjective: Hungry, a little frustrated hasn't even had liquids today - tolerating liquids yesterday but had some bloating this morning. Trying to take less pain meds. Epigastric pain 5/10 today - down from 9/10 before. No flatus or stool, no vomiting. Objective: Objective: Nurse called - pt and "getting cranky" - she's hungry, still awaiting imaging - gave okay to resume clears. Vital Signs: Vital Signs Date Time Temp Pulse Resp B/P (MAP) Pulse Ox O2 Delivery O2 Flow Rate FiO2 03/23/20 10:52 98.0 55 17 117/69 (85) 100 Room Air 98.0 Labs: Laboratory Tests Test 03/23/20 12:08 Glucose (Fingerstick) 62 mg/dL (70-99) URINE CULTURE Final Final GREATER THAN 100,000 CFU/ML GRAM NEGATIVE RODS on 03/22/20 at 0708 FINAL ID= [KLEBSIELLA PNEUMONIAE] Imaging: [facility] 03/23 pending PE: GEN: NAD - present LUNGS: CTAB HEART: RRR ABD: quiet BS - less active today, soft, epigastric discomfort NEURO/PSYCH: A & O 3, cooperative and pleasant A/P: Upper abdominal pain - better? UTI - per Dr. Mello Abnormal CT w/ enteritis vs pSBO, fullness in left hemipelvis, lymphadenopathy - surgery following S/p gastric sleeve COVID-19 negative 03/22 -- Significant time spent. Await x-ray and pelv US. Justicifation of Admission Dx: Justifications for Admission: Justification of Admission Dx: Yes RHEA GAGNON Mar 23, 2020 13:19
--- NOTE | 2020-03-23 15:00 | NUR ---
Pt transferred by wheelchair from room 668 to room 440. Transfer report given to CHERYL Calvillo. Belongings sent with pt at time of transfer.
--- NOTE | 2020-03-23 15:18 | RAD ---
Acute abdominal series to include an AP chest radiograph 03/23/2020 Clinical History: Small bowel obstruction. An AP portable erect digital radiograph of the chest was obtained. Two AP supine and an erect AP digital radiographs of the abdomen/pelvis were obtained. Comparison is made to the patient's CT scan of the abdomen and pelvis dated 03/21/2020. The cardiac and mediastinal silhouettes are within normal limits in size and configuration. No pulmonary infiltrate is seen. No pleural effusion or pneumothorax is noted. A moderate amount stool seen throughout the colon. The air distention of the bowel appears improved since the patient's CT scan. No free air is noted. No radiopaque calculus is seen. The osseous structures are unchanged. IMPRESSION: Interval improvement in the air distention bowel loops since the patient's recent CT scan. Electronically signed by: Jarod Rosado MD (03/23/2020 3:16 PM) [id number]
--- NOTE | 2020-03-23 16:26 | NUR ---
SW following. Spoke with RN and coordinated care with Dr. Mello. Pt's discharge held today per need to advance diet. Pt will likely discharge home tomorrow, 03/24/2020 home with family. SW to continue following.
--- NOTE | 2020-03-23 16:45 | RAD ---
Examination: PELVIS COMPLETE History: Reason: abnormal CT; Mass seen Left Pelvis / Spl. Instructions: / History: Comparison/Correlation: CT abdomen and pelvis with contrast 03/21/2020 Findings: Transabdominal pelvic ultrasound was performed. Uterus measures 9 cm x 5.1 cm x 2.9 cm. Myometrium is unremarkable. Right ovary measures 3.1 x 2.2 cm x 2 cm. The left ovary measures 2.4 cm x 2.7 cm x 1.6. Normal flow involving the ovaries is evident on color Doppler and spectral Doppler imaging. There is a slightly hypoechoic mass within the lobe pelvic region posterior to the uterine cervix corresponding to the finding on CT exam. No pelvic free fluid. Urinary bladder is unremarkable. Impression: Mass is present posterior to uterine cervix. It is of indeterminate significance. Consider further evaluation with MRI of the pelvis without with contrast for further evaluation. Electronically signed by: Michael Aguirre MD (03/23/2020 4:42 PM) [id number]
[2020-03-23] MEDS: diphenhydrAMINE 50 MG/ML VIAL IVP PRN (22:17)
[2020-03-23] MEDS: MORPHINE SULFATE 2 MG/ML VIAL. IV PRN (22:18)
[2020-03-24 03:00] VITALS: BP 103/45
[2020-03-24] MEDS: IV NORMAL SALINE 1000ML BAG 1,000 ML IV SCH ×4 (03:54→22:00)
[2020-03-24] MEDS: PANTOPRAZOLE IV PUSH 40 MG VIAL. IVP SCH (05:46)
[2020-03-24 07:00] VITALS: BP 110/45
[2020-03-24] MEDS: CIPROFLOXACIN HCL 250 MG TABLET. PO SCH ×2 (09:43→20:44)
--- NOTE | 2020-03-24 10:22 | PDOC2 ---
CONSULT Date of Consult Date of Consult DATE: 03/24/20 TIME: 10:19 Reason for Consult Reason for Consult: pelvic mass History of Present Illness Reason for Visit: The pt is a 34y admitted for abd pain. The pt was seen in the ER on 03/21 for N/V/D and abd pain. The pt has a hx significant for a gastric bypass 4yrs ago. She was dxed with SBO/enteritis and has been expectant managed. Since admission her pain has improved. They are advance her diet today. During the course of her w/u the pt was found to have a pelvic mass. In the ER a CT was performed 03/21/20 with the following findings: Poorly characterized area of masslike fullness in the left hemipelvis with adjacent pelvic lymphadenopathy. Imaging characteristics are nonspecific, but considerations would include conglomerate lymphadenopathy, rectosigmoid mass, or exophytic uterine/cervical mass. Contrast-enhanced pelvic MRI may provide additional information. Expansile lytic process involving the left superior pubic ramus and extending to the medial wall of the left acetabulum. This is indeterminate, however given the presence of the pelvic mass and pelvic lymphadenopathy a neoplastic process would be a consideration. An u/s performed on 03/23 defined the mass as follows: Mass is present posterior to uterine cervix. It is of indeterminate significance. Consider further evaluation with MRI of the pelvis without with contrast for further evaluation. Discussed case with radiologist. Based on the imaging they are concerned for malignancy favor cervical (maybe rectal). The pt has not seen a Service Correspondent for some time. The pt can not recall her last pap. She has a PCP, but they do not perform paps. OBHx: TC/S x 5 (first for failure to dilate), AB x 1 Service Correspondent: LMP 2wks ago Can not recall last pap menarche at 14yo regular periods Past Medical History Endocrine: Hypothyroidism Past Surgical History Past Surgical History: (x5), Other (gastric sleeve) Family History Family History: Family History Unknown Social History Quit ALCOHOL: none Drugs: None Lives: with Family Current Problem List Problem List Problems Medical Problems: (1) Enteritis Status: Acute (2) Pelvic mass in female Status: Acute (3) Small bowel obstruction, partial Status: Acute Current Medications Current Medications Current Medications Sodium Chloride 1,000 ml @ 1,000 mls/hr 1X ONCE IV Last administered on 03/21/20at 01:10; Start 03/21/20 at 01:30; Stop 03/21/20 at 02:29; Status DC Ondansetron HCl (Zofran) 4 mg 1X ONCE IVP Last administered on 03/21/20at 01:10; Start 03/21/20 at 01:30; Stop 03/21/20 at 01:31; Status DC Morphine Sulfate (Morphine Sulfate) 4 mg 1X ONCE IV ; Start 03/21/20 at 02:30; Stop 03/21/20 at 02:31; Status DC Ondansetron HCl (Zofran) 4 mg 1X ONCE IVP Last administered on 03/21/20at 02:37; Start 03/21/20 at 02:30; Stop 03/21/20 at 02:31; Status DC Dicyclomine HCl (Bentyl) 20 mg 1X ONCE IM Last administered on 03/21/20at 02:21; Start 03/21/20 at 02:30; Stop 03/21/20 at 02:31; Status DC Hydromorphone HCl (Dilaudid) 1 mg 1X ONCE IM ; Start 03/21/20 at 02:45; Stop 03/21/20 at 02:46; Status DC Hydromorphone HCl (Dilaudid) 1 mg 1X ONCE IV ; Start 03/21/20 at 03:00; Stop 03/21/20 at 03:01; Status DC Iohexol (Omnipaque 300 Mg/ml) 75 ml 1X ONCE IV Last administered on 03/21/20at 03:11; Start 03/21/20 at 03:30; Stop 03/21/20 at 03:31; Status DC Info (CONTRAST GIVEN -- Rx MONITORING) 1 each PRN DAILY PRN MC SEE COMMENTS; Start 03/21/20 at 03:15; Stop 03/23/20 at 03:14; Status DC Ondansetron HCl (Zofran) 4 mg PRN Q8HRS PRN IV NAUSEA/VOMITING 1ST CHOICE; Start 03/21/20 at 04:15; Stop 03/22/20 at 04:14; Status DC Sodium Chloride 1,000 ml @ 125 mls/hr Q8H IV Last administered on 03/24/20at 09:47; Start 03/21/20 at 06:00 Hydromorphone HCl (Dilaudid) 1 mg PRN Q4HRS PRN IV SEVERE PAIN 7-10 Last administered on 03/21/20at 13:35; Start 03/21/20 at 06:00 Morphine Sulfate (Morphine Sulfate) 2 mg PRN Q2HR PRN IV MODERATE TO SEVERE PAIN Last administered on 03/23/20at 22:18; Start 03/21/20 at 14:00 Diphenhydramine HCl (Benadryl) 25 mg PRN Q8HRS PRN IVP ITCHING Last administered on 03/23/20 22:17; Start 03/21/20 at 14:00 Pantoprazole Sodium (PROTONIX VIAL for IV PUSH) 40 mg DAILYAC IVP Last administered on 03/24/20 05:46; Start 03/21/20 at 15:00 Ciprofloxacin (Cipro) 250 mg BID PO Last administered on 03/24/20 09:43; Start 03/23/20 at 12:00 Active Scripts Active Reported Vyvanse (Lisdexamfetamine Dimesylate) 20 Mg Capsule 1 Cap PO DAILYWBKFT MDD 1 Capsule(s) 30 Days Fluoxetine Hcl 10 Mg Tablet 10 Mg PO DAILY Levothyroxine Sodium 88 Mcg Tablet 1 Tab PO DAILY Contrave ER 8-90 mg Tablet (Naltrexone HCl/Bupropion HCl) 1 Each Tablet.er 2 Tab PO BID 30 Days Cyanocobalamin Injection (Cyanocobalamin (Vitamin B-12)) 1,000 Mcg/1 Ml Vial 1 Ml IM QMONTH Unable To Obtain Meds From Prior To Admit (Info) Each 1 Each Allergies Allergies: Coded Allergies: Penicillins (Verified Allergy, Intermediate, HIVES, 03/21/20) morphine (Verified Allergy, Intermediate, hives, 03/21/20) Vitals VITALS Vital Signs Date Time Temp Pulse Resp B/P (MAP) Pulse Ox O2 Delivery O2 Flow Rate FiO2 03/24/20 07:00 98.7 59 18 110/45 (66) 98 Room Air 98.7 Labs Labs Laboratory Tests Test 03/22/20 18:00 03/23/20 12:08 Coronavirus (COVID-19)(PCR) Negative (NEGATIVE) Glucose (Fingerstick) 62 mg/dL (70-99) Laboratory Tests Test 03/23/20 12:08 Glucose (Fingerstick) 62 mg/dL (70-99) Assessment/Plan Assessment/Plan Assessment: 34y admitted for SBO with pelvic mass Recommendation: 1.) Pelvic mass concerns of malignancy. Will perform pap (and bx if appearance of cervix concerning). Will perform in procedure room today. 2.) Abd pain improved, managed by primary team, GI, and Surg 3.) SBO as above 4.) Contraception BTL 5.) H/o gastric bypass 6.) H/o C/S x 5 7.) Service Correspondent hx no recent paps 8.) Will continue to follow CORNELIO DECKER MD Mar 24, 2020 10:21
[2020-03-24] MEDS ORDERED: BISACODYL 10 MG SUPP.RECT. PR ONE (10:30)
--- NOTE | 2020-03-24 10:38 | PDOC ---
SURGICAL PROGRESS NOTE Subjective Patient feeling fine no real complaints has not had a bowel movement but is passing flatus Vital Signs Vital Signs Date Time Temp Pulse Resp B/P (MAP) Pulse Ox O2 Delivery O2 Flow Rate FiO2 03/24/20 07:00 98.7 59 18 110/45 (66) 98 Room Air 98.7 I&O Intake and Output 03/24/20 07:00 Intake Total 1000 ml Balance 1000 ml Intake Oral 0 ml IV Total 1000 ml # Voids 5 PATIENT HAS A VAZQUEZ: No General: Alert, Oriented X3, Cooperative, No acute distress Abdomen: Normal bowel sounds, Soft, No tenderness Labs Laboratory Tests Test 03/22/20 18:00 03/23/20 12:08 Coronavirus (COVID-19)(PCR) Negative (NEGATIVE) Glucose (Fingerstick) 62 mg/dL (70-99) Laboratory Tests Test 03/23/20 12:08 Glucose (Fingerstick) 62 mg/dL (70-99) I have reviewed the following Abdominal films show improvement no gaseous distention air in the colon Vaginal ultrasound showing a mass in the pelvis Problem List Problems Medical Problems: (1) Enteritis Status: Acute (2) Pelvic mass in female Status: Acute (3) Small bowel obstruction, partial Status: Acute Assessment/Plan Ileus versus small bowel obstruction with patient passing flatus and improved x- ray will try a Dulcolax suppository and advance diet as tolerated Justicifation of Admission Dx: Justifications for Admission: Justification of Admission Dx: Yes CHRISTINA FRANCISCO MD Mar 24, 2020 10:38
--- NOTE | 2020-03-24 10:41 | PDOC ---
Subjective: Subjective: Feels better, passing gas, no abd pain. Asking when she can go home. Objective: Objective: Called by nurse at 10:30 - pt requesting to advance diet - gave okay to ADAT per GI. Reviewed DIRECTOR DIGITAL ANALYTICS note: Pelvic mass concerns of malignancy. Will perform pap (and bx if appearance of cervix concerning). Will perform in procedure room today. Suppository ordered by surgery. Vital Signs: Vital Signs Date Time Temp Pulse Resp B/P (MAP) Pulse Ox O2 Delivery O2 Flow Rate FiO2 03/24/20 07:00 98.7 59 18 110/45 (66) 98 Room Air 98.7 Labs: Laboratory Tests Test 03/23/20 12:08 Glucose (Fingerstick) 62 mg/dL (70-99) Imaging: Pelv US 03/23 Impression: Mass is present posterior to uterine cervix. It is of indeterminate significa nce. Consider further evaluation with MRI of the pelvis without with contrast for further evaluation. AAS 03/23 IMPRESSION: Interval improvement in the air distention bowel loops since the patient's recent CT scan. PE: GEN: NAD LUNGS: CTAB HEART: RRR ABD: BS+, soft, less tender NEURO/PSYCH: A & O 3 A/P: Upper abdominal pain - enteritis vs pSBO on CT, latest x-ray as above Pelvic mass - per DIRECTOR DIGITAL ANALYTICS as above UTI - per Dr. Mello S/p gastric sleeve COVID-19 negative 03/22 -- Plans as above. Justicifation of Admission Dx: Justifications for Admission: Justification of Admission Dx: Yes RHEA GAGNON Mar 24, 2020 10:41
[2020-03-24 11:00] VITALS: BP 133/87
--- NOTE | 2020-03-24 11:06 | PDOC ---
PROGRESS NOTES Chief Complaint Chief Complaint IMPRESSION Abdominal pain Enteritis Possible SBO gastric sleeve, hyperthyroidism, OCD. Mass is present posterior to uterine cervix. It is of indeterminate signi ficance. Consider further evaluation with MRI of the pelvis without with contrast for further evaluation 39 MIN PT EXAM, CHART REVIEW, > 50% OF TIME SPENT WITH EXAM, CHART REVIEW, PT CARE COORDINATION. History of Present Illness History of Present Illness 03/24/2020 Patient seen and examined She seems to be feeling better PELVIC MASS NOTED ON SONO 03/24 She tolerated clear liquid diet yesterday but that is on hold for more imaging 03/22/2020 Patient seen and examined She feels little better today Chart reviewed Discussed with RN Working to try clear liquids Vitals Vitals Vital Signs Date Time Temp Pulse Resp B/P (MAP) Pulse Ox O2 Delivery O2 Flow Rate FiO2 03/24/20 07:00 98.7 59 18 110/45 (66) 98 Room Air 98.7 Physical Exam General: Alert, Oriented X3, Cooperative, No acute distress Heart: Regular rate, Normal S1, Normal S2 Lungs: Clear Abdomen: Normal bowel sounds, Soft, No tenderness Extremities: No clubbing, No cyanosis Skin: No rashes, No breakdown Labs LABS Examination: PELVIS COMPLETE History: Reason: abnormal CT; Mass seen Left Pelvis / Spl. Instructions: / History: Comparison/Correlation: CT abdomen and pelvis with contrast 03/21/2020 Findings: Transabdominal pelvic ultrasound was performed. Uterus measures 9 cm x 5.1 cm x 2.9 cm. Myometrium is unremarkable. Right ovary measures 3.1 x 2.2 cm x 2 cm. The left ovary measures 2.4 cm x 2.7 cm x 1.6. Normal flow involving the ovaries is evident on color Doppler and spectral Doppler imaging. There is a slightly hypoechoic mass within the lobe pelvic region posterior to the uterine cervix corresponding to the finding on CT exam. No pelvic free fluid. Urinary bladder is unremarkable. Impression: Mass is present posterior to uterine cervix. It is of indeterminate significance. Consider further evaluation with MRI of the pelvis without with contrast for further evaluation. Electronically signed by: Mulugeta Galicia MD (03/23/2020 4:42 PM) [id number] DICTATED and SIGNED BY: MULUGETA GALICIA MD DATE: 03/23/20 1642 Laboratory Tests Test 03/23/20 12:08 Glucose (Fingerstick) 62 mg/dL (70-99) Assessment and Plan Assessmemt and Plan Problems Medical Problems: (1) Enteritis Status: Acute (2) Pelvic mass in female Status: Acute (3) Small bowel obstruction, partial Status: Acute Comment Review of Relevant I have reviewed the following items aundrea (where applicable) has been applied. Labs Laboratory Tests Test 03/22/20 18:00 03/23/20 12:08 Coronavirus (COVID-19)(PCR) Negative (NEGATIVE) Glucose (Fingerstick) 62 mg/dL (70-99) Laboratory Tests Test 03/23/20 12:08 Glucose (Fingerstick) 62 mg/dL (70-99) Microbiology 03/21/20 Urine Culture - Final, Complete 03/21/20 Antimicrobic Susceptibility - Final, Complete Medications Current Medications Sodium Chloride 1,000 ml @ 1,000 mls/hr 1X ONCE IV Last administered on 03/21/20at 01:10; Start 03/21/20 at 01:30; Stop 03/21/20 at 02:29; Status DC Ondansetron HCl (Zofran) 4 mg 1X ONCE IVP Last administered on 03/21/20at 01:10; Start 03/21/20 at 01:30; Stop 03/21/20 at 01:31; Status DC Morphine Sulfate (Morphine Sulfate) 4 mg 1X ONCE IV ; Start 03/21/20 at 02:30; Stop 03/21/20 at 02:31; Status DC Ondansetron HCl (Zofran) 4 mg 1X ONCE IVP Last administered on 03/21/20at 02:37; Start 03/21/20 at 02:30; Stop 03/21/20 at 02:31; Status DC Dicyclomine HCl (Bentyl) 20 mg 1X ONCE IM Last administered on 03/21/20at 02:21; Start 03/21/20 at 02:30; Stop 03/21/20 at 02:31; Status DC Hydromorphone HCl (Dilaudid) 1 mg 1X ONCE IM ; Start 03/21/20 at 02:45; Stop 03/21/20 at 02:46; Status DC Hydromorphone HCl (Dilaudid) 1 mg 1X ONCE IV ; Start 03/21/20 at 03:00; Stop 03/21/20 at 03:01; Status DC Iohexol (Omnipaque 300 Mg/ml) 75 ml 1X ONCE IV Last administered on 03/21/20at 03:11; Start 03/21/20 at 03:30; Stop 03/21/20 at 03:31; Status DC Info (CONTRAST GIVEN -- Rx MONITORING) 1 each PRN DAILY PRN MC SEE COMMENTS; Start 03/21/20 at 03:15; Stop 03/23/20 at 03:14; Status DC Ondansetron HCl (Zofran) 4 mg PRN Q8HRS PRN IV NAUSEA/VOMITING 1ST CHOICE; Start 03/21/20 at 04:15; Stop 03/22/20 at 04:14; Status DC Sodium Chloride 1,000 ml @ 125 mls/hr Q8H IV Last administered on 03/24/20at 09:47; Start 03/21/20 at 06:00 Hydromorphone HCl (Dilaudid) 1 mg PRN Q4HRS PRN IV SEVERE PAIN 7-10 Last administered on 03/21/20at 13:35; Start 03/21/20 at 06:00 Morphine Sulfate (Morphine Sulfate) 2 mg PRN Q2HR PRN IV MODERATE TO SEVERE PAIN Last administered on 03/23/20at 22:18; Start 03/21/20 at 14:00 Diphenhydramine HCl (Benadryl) 25 mg PRN Q8HRS PRN IVP ITCHING Last administered on 03/23/20at 22:17; Start 03/21/20 at 14:00 Pantoprazole Sodium (PROTONIX VIAL for IV PUSH) 40 mg DAILYAC IVP Last administered on 03/24/20at 05:46; Start 03/21/20 at 15:00 Ciprofloxacin (Cipro) 250 mg BID PO Last administered on 03/24/20at 09:43; Start 03/23/20 at 12:00 Bisacodyl (Dulcolax Supp) 10 mg 1X ONCE ND ; Start 03/24/20 at 10:30; Stop 03/24/20 at 10:35; Status DC Active Scripts Active Reported Vyvanse (Lisdexamfetamine Dimesylate) 20 Mg Capsule 1 Cap PO DAILYWBKFT MDD 1 Capsule(s) 30 Days Fluoxetine Hcl 10 Mg Tablet 10 Mg PO DAILY Levothyroxine Sodium 88 Mcg Tablet 1 Tab PO DAILY Contrave ER 8-90 mg Tablet (Naltrexone HCl/Bupropion HCl) 1 Each Tablet.er 2 Tab PO BID 30 Days Cyanocobalamin Injection (Cyanocobalamin (Vitamin B-12)) 1,000 Mcg/1 Ml Vial 1 Ml IM QMONTH Unable To Obtain Meds From Prior To Admit (Info) Each 1 Each Vitals/I & O Vital Sign - Last 24 Hours 03/23/20 03/23/20 03/23/20 03/23/20 14:54 15:21 19:00 20:00 Temp 98.0 98.2 97.8 98.0 98.2 97.8 Pulse 60 66 66 Resp 17 17 18 B/P (MAP) 121/70 (87) 116/72 (87) 131/61 (84) Pulse Ox 100 99 100 O2 Delivery Room Air Room Air Room Air Room Air 03/23/20 03/23/20 03/23/20 03/24/20 22:18 22:48 23:00 03:00 Temp 98.2 98.2 98.2 98.2 Pulse 65 55 Resp 20 20 18 18 B/P (MAP) 95/52 (66) 103/45 (64) Pulse Ox 100 98 98 99 O2 Delivery Room Air Room Air Room Air Room Air 03/24/20 07:00 Temp 98.7 98.7 Pulse 59 Resp 18 B/P (MAP) 110/45 (66) Pulse Ox 98 O2 Delivery Room Air Intake and Output 03/23/20 03/23/20 03/24/20 15:00 23:00 07:00 Intake Total 1000 ml Balance 1000 ml Justicifation of Admission Dx: Justifications for Admission: Justification of Admission Dx: Yes CHRISTINA WILKES MD Mar 24, 2020 11:06
--- NOTE | 2020-03-24 11:48 | PDOC4 ---
OPERATIVE NOTE: Speculum placed to visualized cervix. Cervix displaced to the right. Cervix appears nml and smooth. No lesions seen. Pap perform and sent to lab. CORNELIO DECKER MD Mar 24, 2020 11:48
[2020-03-24] MEDS: LEVOTHYROXINE 88 MCG TABLET PO SCH (13:00)
[2020-03-24] MEDS ORDERED: FLUoxetine HCL 10 MG CAPSULE PO SCH ×2 (13:00→21:00)
[2020-03-24 15:00] VITALS: BP 113/64
--- NOTE | 2020-03-24 16:34 | NUR ---
SW following. Reviewed chart and spoke with RN and CM. Pt had a bowel movement today with plan to continue to attempt to advance pt's diet. Pt also to have a biopsy of cyst per RN. Pt from home and will discharge when stable. SW to continue following.
[2020-03-24 19:00] VITALS: BP 121/76
[2020-03-24 23:04] VITALS: BP 122/75
[2020-03-25 03:07] VITALS: BP 102/59
[2020-03-25] MEDS: PANTOPRAZOLE IV PUSH 40 MG VIAL. IVP SCH (06:10)
[2020-03-25] MEDS: PANTOPRAZOLE 40 MG TABLET.DR. PO SCH ×2 (06:37→09:06)
[2020-03-25 07:00] VITALS: BP 145/58
[2020-03-25] MEDS: LEVOTHYROXINE 88 MCG TABLET PO SCH ×2 (09:00→09:06)
[2020-03-25] MEDS: CIPROFLOXACIN HCL 250 MG TABLET. PO SCH (09:06)
--- NOTE | 2020-03-25 09:50 | PDOC ---
Subjective: Subjective: Tolerating regular diet w/ less upper abdominal cramping - mostly occurs after eating. Passing gas and stool. Objective: Vital Signs: Vital Signs Date Time Temp Pulse Resp B/P (MAP) Pulse Ox O2 Delivery O2 Flow Rate FiO2 03/25/20 07:00 97.9 61 17 145/58 (87) 100 Room Air 97.9 Imaging: Reviewed DIRECTOR TITLE note: Speculum placed to visualized cervix. Cervix displaced to the right. Cervix appears nml and smooth. No lesions seen. Pap perform and sent to lab. PE: GEN: NAD LUNGS: CTAB HEART: RRR ABD: quiet BS, soft, epigastric discomfort - mild/better NEURO/PSYCH: A & O 3 A/P: Upper abdominal pain - enteritis vs pSBO on CT - resolved Pelvic mass - per DIRECTOR TITLE UTI S/p gastric sleeve H/o constipation - Miralax and Linzess lost efficacy COVID-19 negative 03/22 -- Try Amitiza for constipation. DC per primary/DIRECTOR TITLE - d/w nurse. Follow-up w/ Gi as outpt PRN. Justicifation of Admission Dx: Justifications for Admission: Justification of Admission Dx: Yes RHEA GAGNON Mar 25, 2020 09:50
--- NOTE | 2020-03-25 09:51 | PDOC ---
SURGICAL PROGRESS NOTE Subjective Patient states she is doing well today has had a couple of bowel movements tolerating diet Vital Signs Vital Signs Date Time Temp Pulse Resp B/P (MAP) Pulse Ox O2 Delivery O2 Flow Rate FiO2 03/25/20 07:00 97.9 61 17 145/58 (87) 100 Room Air 97.9 I&O Intake and Output 03/25/20 06:59 Intake Total 440 ml Balance 440 ml Intake Oral 440 ml # Voids 4 # Bowel Movements 1 PATIENT HAS A VAZQUEZ: No General: Alert, Oriented X3, Cooperative, No acute distress Abdomen: Normal bowel sounds, Soft, No tenderness Labs Laboratory Tests Test 03/23/20 12:08 Glucose (Fingerstick) 62 mg/dL (70-99) Problem List Problems Medical Problems: (1) Enteritis Status: Acute (2) Pelvic mass in female Status: Acute (3) Small bowel obstruction, partial Status: Acute Assessment/Plan Resolution of her ileus having bowel movements tolerating diet No surgical plans Justicifation of Admission Dx: Justifications for Admission: Justification of Admission Dx: Yes CHRISTINA FRANCISCO MD Mar 25, 2020 09:51
[2020-03-25] MEDS ORDERED: BISACODYL 5 MG TABLET.DR. PO PRN (10:00)
[2020-03-25] MEDS ORDERED: BISACODYL 10 MG SUPP.RECT. PR PRN (10:00)
--- NOTE | 2020-03-25 10:01 | PDOC ---
MOTORMAN/WOMAN PROGRESS NOTE Subjective: Informed the pt that based on the appearance her cervix is not likely the source of the mass. Since this is the case, finding the best way to eval the mass is the next step. Radiology suggested a MRI, which may help. It would also be good to have an eval of rectum and colon which possibly could be done by GI or surgery. The pt states that the advancement of her diet went ok. Objective: Vital Signs: Vital Signs Date Time Temp Pulse Resp B/P (MAP) Pulse Ox O2 Delivery O2 Flow Rate FiO2 03/24/20 07:00 98.7 59 18 110/45 (66) 98 Room Air 98.7 Vital Signs Date Time Temp Pulse Resp B/P (MAP) Pulse Ox O2 Delivery O2 Flow Rate FiO2 03/25/20 07:00 97.9 61 17 145/58 (87) 100 Room Air 97.9 Physical Exam: GENERAL: No apparent distress. Alert and oriented. HEENT: Head normocephalic, atraumatic. NECK: Supple LUNGS: Clear to auscultation. HEART: RRR, S1, S2 present, pulses intact ABDOMEN: Soft, positive bowel sounds. EXTREMITIES: No cyanosis or edema. NEUROLOGIC: Normal speech, normal tone PSYCHIATRIC: Normal affect, normal mood. SKIN: No ulceration. Assessment & Plan: A/P 34y admitted for SBO with pelvic mass 1.) Pelvic mass concerns of malignancy. Pap performed. Cervix appeared nml with no lesions. Mass displaced cervix to the left. [place] mobile. Mass may need to be eval with MRI or some type eval of rectum/colon. Can be done as outpt if necessary 2.) Abd pain improved, diet currently being advanced, managed by primary team, GI, and Surg 3.) SBO as above 4.) Contraception BTL 5.) H/o gastric bypass 6.) H/o C/S x 5 7.) Will continue to follow CORNELIO DECKER MD Mar 25, 2020 10:01
[2020-03-25 11:00] VITALS: BP 124/72
--- NOTE | 2020-03-25 12:43 | DS ---
DATE OF DISCHARGE: ADMISSION DIAGNOSES: Enteritis and partial small bowel obstruction, history of gastric sleeve. DISCHARGE DIAGNOSES: Resolving abdominal pain, resolving small bowel obstruction, resolving enteritis, incidental finding of a posterior cervical mass (right ovarian mass 3.1 x 2.2 x 2 cm). CONSULTS: AD OPERATIONS COORDINATOR and also GI and General Surgery. PROCEDURES: None. HISTORY COURSE: The patient is a pleasant middle-aged female who presented with. DICTATION ENDS HERE. FRANCOIS LOVE DO DR: MILAN/georges JOB#: [id number] / [id number]
--- NOTE | 2020-03-25 12:52 | DS ---
DATE OF DISCHARGE: 03/25/2020 ADMISSION DIAGNOSES: Abdominal pain, enteritis, possible small-bowel obstruction, history of gastric sleeve. DISCHARGE DIAGNOSES: Resolving abdominal pain, resolving probable small-bowel obstruction with incidental finding of a small pelvic mass. CONSULTS: Dr. Nakul Gardner, MANAGER WOUND; Dr. Clarke, GI; and Dr. Geronimo, General Surgery. PROCEDURES: None. HOSPITAL COURSE: The patient is a pleasant middle-aged female who presented with abdominal pain. She had a gastric sleeve 4 years ago. We were concerned this was probably somehow related to her history of gastric sleeve, but we went ahead and admitted her, the above consults were obtained. We gave her antiemetics and fluids. Over the past few days, she has done much better. This morning, I saw her and examined her. Heart tones are normal. Lungs are clear Abdomen was soft. She has advanced her diet. She looks great. The consultants were okay with the going home. I just spoke with Dr. Nakul Gardner few minutes ago. He is concerned about making sure she gets follow up for this incidental discovery of a small pelvic mass that is 3.1 x 2.[address] Nakul Gardner felt like she probably needs to have a colonoscopy to see if it is probably attached to her rectum, because he really did not see much on the pelvic exam. Overall, she looks great. We are going to discharge. I gave orders for the nurse to discharge her and make sure the patient follows up with GI to consider endoscopy and she is also going to follow up with Dr. Nakul Gardner as well as her primary care doctor. DISPOSITION: Home. ACTIVITY: As tolerated. DIET: Low sodium. MEDICATIONS: Please see the MRAD. TOTAL TIME: 34 minutes. LEOL Izabel LOVE DO DR: MILAN/georges JOB#: [id number] / [id number]
--- NOTE | 2020-03-25 14:45 | NUR ---
SW following. Spoke with RN and coordinated care with Dr. Sterling. Pt clear for discharge home with family. Pt on oral medications and room air. No further SW needs at this time.
[2020-03-25 15:00] VITALS: BP 116/81
--- NOTE | 2020-03-25 15:19 | NUR ---
dismissed to home with . reviewed follow up with Tony Wong and her PCP and the phone numbers. rec a colonoscopy with Dr. Jimenez see Dr. Gardner for the pap and bx results . then see her PCP for all other. states she will take her thyroid medication when home . personal belongings gathered.
[2020-03-25] MEDS ORDERED: LUBIPROSTONE 24 MCG CAPSULE PO SCH (17:00)
== END 2020-03-25 15:30 | disposition home or self-care (01) | DRG 389 ==
LOC: ER 00:23 → 6 SOUTH 04:00 → 4 NORTH 03-23 15:06
PROVIDERS: ADMIT Internal Medicine; ATTEND Internal Medicine
DX: K56.600 Partial intestinal obstruction, unspecified as to cause (principal); N39.0 Urinary tract infection, site not specified; E03.9 Hypothyroidism, unspecified; E05.90 Thyrotoxicosis, unspecified without thyrotoxic crisis or storm; E53.8 Deficiency of other specified B group vitamins; F42.9 Obsessive-compulsive disorder, unspecified; K52.9 Noninfective gastroenteritis and colitis, unspecified; Z20.828 Contact with and (suspected) exposure to other viral communicable diseases; Z83.3 Family history of diabetes mellitus; Z98.84 Bariatric surgery status; Z88.8 Allergy status to other drugs, medicaments and biological substances
CPT/HCPCS: 36415; 74018; 74022; 74177; 76856; 80048; 80053; 81001; 81025; 82607; 82962; 83540; 83550; 83605; 83690; 85025; 85027; 87077; 87086; 87186; 88175; 96361; 96372; 96374; 96376; C9113; J0500; J1170; J1200; J2270; J2405; J7030; Q9967; 99285-25; G0378; U0003-CS